=== PATIENT | male | born 1995 | race Caucasian/White ===

== ENCOUNTER 2018-06-04 09:38 | Observation (INO) ==
[2018-06-04] MEDS ORDERED: IOPAMIDOL 100 ML BOTTLE IV ONE (09:39)
[2018-06-04] MEDS ORDERED: 0.9 % SODIUM CHLORIDE 1,000 ML IV ONE ×2 (09:47→11:19)
--- NOTE | 2018-06-04 10:06 | Emergency Department Note ---
Fever HPI - General Chief Complaint: Fever Stated Complaint: Fever Time Seen by Provider: 06/04/18 09:54 Source: patient Mode of arrival: ambulatory Limitations: no limitations - History of Present Illness HPI Narrative: Patient has been having fever and cough for the past week. Seen at the urgent care and they referred him over to the ED as the patient sats are running at 88 % to 90%. States there is been some yellowish greenish sputum production. States he is not wheezing he has a history of childhood asthma but has not used albuterol for many years according to his mother. Mother states that his brother was also diagnosed with pneumonia 1 week ago. He has had some sore throat 1 week ago but currently is not. He had one episode of vomiting today his appetite is been poor. His temperature is 98.9 at this timeTemperature 98.9 the pulse is 128 respirations at 20 blood pressure 123/84 pulse ox is reading at 88% on room air - Related Data Home Medications Medication Instructions Recorded Confirmed No Known Home Meds [No Known Home 06/04/18 Meds] Allergies Allergy/AdvReac Type Severity Reaction Status Date / Time cats Allergy Unknown sneezing, Uncoded 06/04/18 09:16 eyes swell dogs Allergy Unknown sneezing, Uncoded 06/04/18 09:16 eyes swell dust Allergy Unknown Sneezing Uncoded 06/04/18 09:16 horses Allergy Unknown Sneezing, Uncoded 06/04/18 09:16 eyes swell Review of Systems All systems ED: reviewed and negative except as stated. Constitutional: Reports: fever Eyes: Denies: eye pain ENT ED: Denies: ear pain Cardiovascular: Denies: chest pain Respiratory: Reports: cough. Denies: shortness of breath, wheezes Gastrointestinal: Denies: abdominal pain, nausea Genitourinary: Denies: dysuria, frequency, urgency Musculoskeletal: Denies: back pain, joint swelling Integumentary: Denies: rash, lesions Neurological: Denies: headache, weakness Psychiatric: Denies: anxiety, depression Endocrine: Denies: fatigue Hematological/Lymphatic: Denies: easy bleeding Allergic/Immunologic: Denies: facial swelling Fever PMH - Past Medical History Medical history: Reports: other (Eczema anxiety) Surgical history ED: Reports: non-contributory Family history: Reports: no significant family history - Social History smoking status: Never smoker Alcohol use: Reports: None Drug use: Reports: none Physical Exam Limitations: no limitations General appearance: alert Head: atraumatic, normocephalic Eye: Present: normal appearance, PERRL ENT: normal exam, normal oropharynx, mucous membranes moist Neck: Present: normal inspection, full ROM. Absent: trachea midline Chest: Present: normal inspection, symmetric chest wall rise. Absent: tenderness Respiratory: Present: normal lung sounds bilaterally. Absent: respiratory distress, wheezes, stridor Cardiovascular: Present: regular rate Abdominal: Present: soft, normal bowel sounds. Absent: distention, tenderness, guarding, rebound, rigidity Extremities: Present: normal inspection, full ROM. Absent: tenderness Back: Present: normal inspection, full ROM. Absent: tenderness Neurological: Present: alert, oriented X3, CN II-XII intact Psychiatric: Present: normal affect, normal mood. Absent: depressed, agitated Skin: Present: warm, dry Course Vital Signs Temperature 98.9 F 06/04/18 09:39 Pulse Rate 128 H 06/04/18 09:39 Respiratory Rate 20 06/04/18 09:39 Blood Pressure 123/84 06/04/18 09:39 Pulse Oximetry (%) 88 L 06/04/18 09:39 Temperature 100.4 F H 06/04/18 12:32 Pulse Rate 113 H 06/04/18 12:32 Respiratory Rate 23 H 06/04/18 11:30 Blood Pressure 118/74 06/04/18 12:32 Pulse Oximetry (%) 91 06/04/18 12:32 Fever - MDM Narrative Medical decision making narrative: Contusion noted WBC is 11,766 and 21 bands, 60 segs her d-dimer was elevated at 4.44 sodium is 133 potassium 3.9. CTA was performed which showed no evidence of PE but did reveal bilateral infiltrates. Patient requiring O2 to keep his sats above 93rd Dr Millan contacted and he will evaluate the patient for admission. - Lab Data Result diagrams: 06/04/18 09:57 06/04/18 09:57 Lab Results 06/04/18 06/04/18 06/04/18 Range/Units 09:57 09:57 09:57 WBC 11.7 H (4.5-11.0) K/mcL RBC 5.23 (4.50-5.90) M/mcL Hgb 15.1 (13.5-16.5) g/dL Hct 44.9 (41.0-55.0) % MCV 85.8 (80.0-100.0) fL MCH 29.0 (26.0-34.0) pg MCHC 33.8 (31.0-36.0) g/dL RDW 12.4 (11.5-14.5) % Plt Count 324 (140-440) K/mcL MPV 8.9 (7.4-10.4) fL Total Counted 100 Seg Neutrophils % 60 (38-78) % Band Neutrophils % 21 H (0-10) % Lymphocytes % 11 L (15-49) % Monocytes % (Manual) 4 (1-12) % Eosinophils % (Manual) 3 (0-7) % Reactive Lymphocytes 1 (0-2) % Platelet Estimate Normal (NORMAL) RBC Morphology Normal (NORMAL) D-Dimer (0.00-0.40) ug/ml VBG Lactic Acid 1.3 (0.5-2.2) mmol/L Sodium 133 (133-145) mmol/L Potassium 3.9 (3.3-5.1) mmol/L Chloride 91 L (96-108) mmol/L Carbon Dioxide 21 L (22-30) mmol/L Anion Gap 21.0 H (8-16) BUN 12 (6-20) mg/dl Creatinine 0.8 (0.7-1.2) mg/dl GFR Calculation 126 Glucose 104 (70-105) mg/dL Calcium 9.2 (8.6-10.4) mg/dl Total Bilirubin 0.5 (0.0-1.0) mg/dL AST 23 (0-37) U/l ALT 16 (0-40) U/l Alkaline Phosphatase 55 (39-117) U/L Total Protein 8.3 (5.9-8.4) gm/dL Albumin 4.3 (3.2-5.2) gm/dL Globulin 4.0 H (2.2-3.7) gm/dL Albumin/Globulin Ratio 1.1 (1.0-2.3) Urine Color Urine Appearance Urine pH (5.0-9.0) Ur Specific [place] (1.000-1.035) Urine Protein (NEG) mg/dL Urine Glucose (UA) (NEG) mg/dL Urine Ketones (NEG) mg/dL Urine Occult Blood (<0.03) mg/dL Urine Nitrate (NEG) Urine Bilirubin (NEG) mg/dL Urine Urobilinogen (NEG) mg/dL Ur Leukocyte Esterase (NEG) /uL Urine RBC (0-1) /hpf Urine WBC (0-4) /hpf Ur Squamous Epith Cells (0-4) /hpf Urine Bacteria (0) /hpf Urine Mucus (0) /hpf Ur Culture Indicated? 06/04/18 06/04/18 Range/Units 09:57 12:19 WBC (4.5-11.0) K/mcL RBC (4.50-5.90) M/mcL Hgb (13.5-16.5) g/dL Hct (41.0-55.0) % MCV (80.0-100.0) fL MCH (26.0-34.0) pg MCHC (31.0-36.0) g/dL RDW (11.5-14.5) % Plt Count (140-440) K/mcL MPV (7.4-10.4) fL Total Counted Seg Neutrophils % (38-78) % Band Neutrophils % (0-10) % Lymphocytes % (15-49) % Monocytes % (Manual) (1-12) % Eosinophils % (Manual) (0-7) % Reactive Lymphocytes (0-2) % Platelet Estimate (NORMAL) RBC Morphology (NORMAL) D-Dimer 4.44 H (0.00-0.40) ug/ml VBG Lactic Acid (0.5-2.2) mmol/L Sodium (133-145) mmol/L Potassium (3.3-5.1) mmol/L Chloride (96-108) mmol/L Carbon Dioxide (22-30) mmol/L Anion Gap (8-16) BUN (6-20) mg/dl Creatinine (0.7-1.2) mg/dl GFR Calculation Glucose (70-105) mg/dL Calcium (8.6-10.4) mg/dl Total Bilirubin (0.0-1.0) mg/dL AST (0-37) U/l ALT (0-40) U/l Alkaline Phosphatase (39-117) U/L Total Protein (5.9-8.4) gm/dL Albumin (3.2-5.2) gm/dL Globulin (2.2-3.7) gm/dL Albumin/Globulin Ratio (1.0-2.3) Urine Color Yellow Urine Appearance Clear Urine pH 6.0 (5.0-9.0) Ur Specific [place] 1.009 (1.000-1.035) Urine Protein Neg (NEG) mg/dL Urine Glucose (UA) Negative (NEG) mg/dL Urine Ketones 20 A (NEG) mg/dL Urine Occult Blood Neg (<0.03) mg/dL Urine Nitrate Neg (NEG) Urine Bilirubin Neg (NEG) mg/dL Urine Urobilinogen Neg (NEG) mg/dL Ur Leukocyte Esterase Neg (NEG) /uL Urine RBC 0 (0-1) /hpf Urine WBC 0 (0-4) /hpf Ur Squamous Epith Cells < 1 (0-4) /hpf Urine Bacteria Few A (0) /hpf Urine Mucus Many A (0) /hpf Ur Culture Indicated? Yes Disposition Pt seen by ADMINISTRATIVE MANAGER/PA only: No Clinical Impression: Bilateral pneumonia Qualifiers: Pneumonia type: due to unspecified organism Disposition: Xfer As Inpt ([facility]) Condition: Fair Referrals: Umesh Qureshi PA-C [Primary Care Provider] -
[2018-06-04] MEDS ORDERED: cefTRIAXone 1 GM VIAL IV ONE (10:34)
[2018-06-04] MEDS ORDERED: AZITHROMYCIN 500 MG in DEXTROSE 5% IN WATER 250 ML IV ONE (10:35)
[2018-06-04 10:52] LABS: Mean Cell Volume 85.8 fL (80.0-100.0); Mean Corpuscular HGB Conc 33.8 g/dL (31.0-36.0); Platelet Count 324 K/mcL (140-440); RBC 5.23 M/mcL (4.50-5.90); Red Cell Distribution Width 12.4 % (11.5-14.5)
--- NOTE | 2018-06-04 11:00 | XRay Report ---
HISTORY: Reason for Exam:shortness of breath FINDINGS: The lungs are clear. The heart, mediastinum, alonso and pleura are normal. IMPRESSION: Normal chest. Interpreted and Authenticated by: Tono Alba 06/04/18
[2018-06-04] MEDS ORDERED: IPRATROPIUM/ALBUTEROL 3 ML AMPUL.NEB NEB ONE (11:21)
[2018-06-04 11:32] LABS: ALT/SGPT 16 U/l (0-40); Albumin 4.3 gm/dL (3.2-5.2); Albumin/Globulin Ratio 1.1 (1.0-2.3); Alkaline Phosphatase 55 U/L (39-117); Blood Urea Nitrogen 12 mg/dl (6-20)
[2018-06-04 11:43] LABS: Band Neutrophils % 21 % (0-10); Eosinophils % (Manual) 3 % (0-7); Lymphocytes % 11 % (15-49); Monocytes % (Manual) 4 % (1-12); Platelet Estimate NORMAL (NORMAL); RBC Morphology NORMAL (NORMAL); Segmented Neutrophils % 60 % (38-78)
--- NOTE | 2018-06-04 12:39 | Cat Scan Report ---
CLINICAL INFORMATION: Reason for Exam:low stats, fever, shortness of breath, elevated d-dimer COMPARISON: None TECHNIQUE: Axial images obtained through the chest. intravenous contrast administration was administered, and scanning was performed during pulmonary arterial phase. Sagittally and coronally reformatted images were obtained. MIP reformatted images. Radiation exposure was limited using dose reduction technology. FINDINGS: There are mild generalized patchy alveolar infiltrates in both lungs. Some of them are peribronchial in distribution. The greatest involvement is in the central portion of the lungs. No lobar consolidation is present. There is no evidence of a mass or pleural effusion. There are small reactive lymph nodes in mediastinum and both alonso. The pulmonary arteries are normal without evidence of emboli. The aorta is normal in caliber and there is no aneurysm or dissection. The heart is normal in size and contour. IMPRESSION: Generalized patchy alveolar infiltrates in both lungs. This most likely due to pneumonia. Collagen vascular disease or hypersensitivity reaction are also in the differential. Dr. Sprague was called with the results Interpreted and Authenticated by: Tono Alba 06/04/18
[2018-06-04 12:54] LABS: Appearance,Urine CLEAR; Bacteria,Urine FEW /hpf (0); Bilirubin,Urine NEG (NEG); Color,Urine YELLOW; Glucose,Urine (UA) NEGATIVE (NEG); Leukocyte Esterase,Urine NEG /uL (NEG); Mucus,Urine MANY /hpf (0); Protein,Urine NEG (NEG); Specific Gravity,Urine 1.009 (1.000-1.035); Urine Blood NEG mg/dL (<0.03); Urine RBC 0 /hpf (0-1); Urine Squamous Epithelial Cell < 1 /hpf (0-4); Urine WBC 0 /hpf (0-4); Urobilinogen,Urine NEG (NEG)
[2018-06-04] MEDS ORDERED: methylPREDNISolone SOD SUCC 125 MG/2 ML VIAL IV ONE (15:01)
[2018-06-04] MEDS ORDERED: methylPREDNISolone SOD SUCC 125 MG/2 ML VIAL IV STA (15:04)
[2018-06-04] MEDS ORDERED: IBUPROFEN 600 MG TABLET PO PRN ×2 (15:07→16:04)
[2018-06-04] MEDS ORDERED: ACETAMINOPHEN 325 MG TABLET PO PRN ×2 (15:07→16:04)
--- NOTE | 2018-06-04 15:12 | Internal Med History&Physical ---
Medical - H&P: HPI Patient information: Note initiated : 06/04/18 at 3:03 pm Service Date, if different from initiated Date: [] Patient: Baljinder Alonzo 23 y/o M admitted on for Fever. Chief Complaint: [] Chief complaint: low saturation, 80-90% room air History of present illness: Mr. Alonzo is a 23 year old M, nonsmoker, with significant history of childhood asthma, referred to the ER by urgent care for low room air saturation of 88-90% . He had exposure to his brother, who had been diagnosed with pneumonia and treated with Zithromax a week ago. He had been having cough, fever, night sweats the last week. Stat ABG in the ER show marginal hypoxemia, chest x-ray unremarkable, CTA with patchy alveolar infiltrates bilaterally, most likely due to pneumonia per radiologist report. He was given 2 L IV normal saline, IV Rocephin and IV azithromycin, DuoNeb aerosol treatments, currently on 2 L O2 nasal cannula. Medical - H&P: Meds Home Medications Medication Instructions Recorded Confirmed Type No Known Home Meds [No Known Home 06/04/18 06/04/18 History Meds] Allergies Allergy/AdvReac Type Severity Reaction Status Date / Time cats Allergy Unknown sneezing, Uncoded 06/04/18 09:16 eyes swell dogs Allergy Unknown sneezing, Uncoded 06/04/18 09:16 eyes swell dust Allergy Unknown Sneezing Uncoded 06/04/18 09:16 horses Allergy Unknown Sneezing, Uncoded 06/04/18 09:16 eyes swell Medical - H&P: Exam - Constitutional Vitals: Temp Pulse Resp BP Pulse Ox 100.4 F H 94 H 31 H 118/75 96 06/04/18 12:32 06/04/18 14:30 06/04/18 14:30 06/04/18 14:30 06/04/18 14:30 Exam: Resting, somewhat flat - Head Head exam: Present: atraumatic, normocephalic - Eye Eye exam: Present: EOMI Pupils: Present: normal accommodation, PERRL - ENT ENT exam: Present: mucous membranes dry - Neck Neck exam: Present: full ROM. Absent: lymphadenopathy, meningismus - Respiratory Respiratory exam: Present: wheezes. Absent: accessory muscle use - Cardiovascular Cardiovascular exam: Present: +S1, +S2, tachycardia - GI/Abdominal GI/Abdominal exam: Present: normal bowel sounds, soft. Absent: guarding, rebound, tenderness - Extremities Exam Extremities exam: Present: full ROM Additional comments: No clubbing, cyanosis, nor edema - Neurological Exam Neurological exam: Present: alert, CN II-XII intact, oriented X3 - Skin Skin exam: Present: dry, intact, warm Medical - H&P: Reslt - Labs CBC & Chem 7: 06/04/18 09:57 06/04/18 09:57 Labs: Short CBC 06/04/18 Range/Units 09:57 WBC 11.7 H (4.5-11.0) K/mcL Hgb 15.1 (13.5-16.5) g/dL Hct 44.9 (41.0-55.0) % Plt Count 324 (140-440) K/mcL BMP 06/04/18 09:57 Sodium 133 Potassium 3.9 Chloride 91 L Carbon Dioxide 21 L BUN 12 Creatinine 0.8 Glucose 104 Calcium 9.2 Liver Function 06/04/18 Range/Units 09:57 Total Bilirubin 0.5 (0.0-1.0) mg/dL AST 23 (0-37) U/l ALT 16 (0-40) U/l Alkaline Phosphatase 55 (39-117) U/L Albumin 4.3 (3.2-5.2) gm/dL Urine 06/04/18 Range/Units 12:19 Urine Color Yellow Urine Appearance Clear Urine pH 6.0 (5.0-9.0) Ur Specific [place] 1.009 (1.000-1.035) Urine Protein Neg (NEG) mg/dL Urine Glucose (UA) Negative (NEG) mg/dL Medical - H&P: A/P (1) Asthma exacerbation Current visit: Yes Status: Acute (2) Hypoxemia Current visit: Yes Status: Acute (3) Fever Current visit: No Status: Acute
[2018-06-04] MEDS ORDERED: cefTRIAXone 1 GM in DEXTROSE 5% IN WATER 50 ML IV SCH (15:15)
[2018-06-04] MEDS: 0.9 % SODIUM CHLORIDE 10 ML SYRINGE IV SCH ×2 (17:55→21:13)
[2018-06-04] MEDS: 0.9 % SODIUM CHLORIDE 1,000 ML IV SCH (17:57)
[2018-06-04] MEDS ORDERED: IPRATROPIUM/ALBUTEROL 3 ML AMPUL.NEB NEB SCH (19:00)
[2018-06-04] MEDS: IPRATROPIUM/ALBUTEROL 3 ML AMPUL.NEB NEB SCH ×2 (19:53→23:18)
[2018-06-04] MEDS: BUDESONIDE 0.5 MG/2 ML AMPUL.NEB NEB SCH (19:53)
[2018-06-04] MEDS ORDERED: BUDESONIDE 0.5 MG/2 ML AMPUL.NEB NEB SCH (21:00)
[2018-06-04] MEDS ORDERED: guaiFENesin 600 MG TAB.SR.12H PO SCH (21:00)
[2018-06-04] MEDS: methylPREDNISolone SOD SUCC 40 MG/ML VIAL IV SCH (21:10)
[2018-06-04] MEDS: guaiFENesin 600 MG TAB.SR.12H PO SCH (21:10)
[2018-06-04] MEDS ORDERED: methylPREDNISolone SOD SUCC 40 MG/ML VIAL IV SCH (21:30)
[2018-06-04] MEDS ORDERED: 0.9 % SODIUM CHLORIDE 10 ML SYRINGE IV SCH (22:00)
[2018-06-05] MEDS: methylPREDNISolone SOD SUCC 40 MG/ML VIAL IV SCH ×3 (01:12→12:13)
[2018-06-05] MEDS: IPRATROPIUM/ALBUTEROL 3 ML AMPUL.NEB NEB SCH ×5 (04:09→19:45)
[2018-06-05] MEDS: 0.9 % SODIUM CHLORIDE 1,000 ML IV SCH (04:09)
[2018-06-05 06:20] LABS: Basophils # (Auto) 0 K/mcL (0.0-0.3); Basophils % (Auto) 0.1 % (0.0-2.0); Eosinophils # (Auto) 0 K/mcL (0.0-0.7); Eosinophils % (Auto) 0 % (0.0-7.0); Lymphocytes # (Auto) 0.9 K/mcL (1.5-4.8); Lymphocytes % (Auto) 14.6 % (15.5-49.0); Mean Cell Volume 87.8 fL (80.0-100.0); Mean Corpuscular HGB Conc 33.6 g/dL (31.0-36.0); Mean Corpuscular Hemoglobin 29.5 pg (26.0-34.0); Monocytes # (Auto) 0.2 K/mcL (0.1-0.9); Monocytes % (Auto) 3.3 % (1.0-12.0); Platelet Count 332 K/mcL (140-440); RBC 4.67 M/mcL (4.50-5.90); Red Cell Distribution Width 12.7 % (11.5-14.5)
[2018-06-05 06:44] LABS: ALT/SGPT 14 U/l (0-40); Albumin 3.8 gm/dL (3.2-5.2); Albumin/Globulin Ratio 1.2 (1.0-2.3); Alkaline Phosphatase 43 U/L (39-117); Blood Urea Nitrogen 11 mg/dl (6-20)
[2018-06-05] MEDS: 0.9 % SODIUM CHLORIDE 10 ML SYRINGE IV SCH ×2 (07:04→18:02)
[2018-06-05] MEDS: BUDESONIDE 0.5 MG/2 ML AMPUL.NEB NEB SCH ×2 (07:34→19:46)
[2018-06-05] MEDS ORDERED: cefTRIAXone 1 GM VIAL IV SCH (09:00)
[2018-06-05] MEDS ORDERED: AZITHROMYCIN 250 MG TABLET PO SCH ×2 (09:00)
[2018-06-05] MEDS: guaiFENesin 600 MG TAB.SR.12H PO SCH ×2 (09:19→20:15)
[2018-06-05] MEDS ORDERED: cefTRIAXone 1 GM in DEXTROSE 5% IN WATER 50 ML IV SCH (15:15)
--- NOTE | 2018-06-05 19:56 | Discharge Summary ---
Medical - DS: Prov Patient information: Note initiated : 06/05/18 at 7:46 pm Service Date, if different from initiated Date: [] Patient: Baljinder Alonzo 23 y/o M admitted on 06/04/18 for Fever/Asthma Exacerbation. Chief Complaint: [] Date of admission: 06/04/18 15:52 Discharge date: 06/05/18 (home with flovent, combivent, oral Abx) Primary care physician: Umesh Qureshi Admitting clinician: Renee Mc Consults: 06/04/18 12:48 Consult to Physician [CONS] Stat Comment: Consulting Provider: Renee Mc Reason For Exam: Physician to Consult Attending physician on discharge: Renee Mc Medical - DS: Meds - Discharge Medications Prescriptions: Azithromycin [Zithromax] 500 mg PO DAILY #4 tab Cefuroxime Axetil [Cefuroxime] 500 mg PO BID #14 tab Fluticasone Hfa 220Mcg [Flovent Hfa 220Mcg] 2 puff INH BID #1 inhaler guaiFENesin [Mucinex] 600 mg PO BID #20 tab.sr.12h Ipratropium/Albuterol Sulfate [Combivent] 1 - 2 puff INH QIDP PRN #1 inhaler PRN Reason: short of breath Active and Home Medications: Home Medications No Known Home Meds [No Known Home Meds] 06/04/18 [History Confirmed 06/04/18 Last Taken Unknown] Medical - DS: Hosp Hospital course: Mr. Alonzo is a 23 year old M, nonsmoker, with significant history of childhood asthma, referred to the ER by urgent care for low room air saturation of 88-90% . He had exposure to his brother, who had been diagnosed with pneumonia and treated with Zithromax a week ago. He had been having cough, fever, night sweats the last week. Stat ABG in the ER show marginal hypoxemia, chest x-ray unremarkable, CTA with patchy alveolar infiltrates bilaterally, most likely due to pneumonia per radiologist report. He responded well to aerosol, IV steroids , antibiotics with Rocephin and Zithromax. His pulse ox is now 91 percent pre- and 94% post ambulatory on room air. Although one set of blood culture are reported to be positive with staph epidermidis, gram-positive cocci, not staph aureus, it is likely skin adlia contamination. Clinically he is significantly improve, and will benefit from inhaled steroids for his ignored/undiagnosed asthma/COPD from years of allergen exposure. He is to be discharged home with oral Zithromax (high dose for 5 days), oral Ceftin (7 days), Flovent, when necessary Combivent. Mucinex to ease up coughing. He is to follow with his PCP in 1-2 weeks. Discharge diagnosis: asthma exacerbation Secondary discharge diagnosis: Hypoxemia, URI, residual patchy alveolar infiltrates Severe seasonal/environmental allergies, untreated, his x-ray now show stigmata of asthma/early COPD. Dehydration, resolve with IV fluid. - Time Spent with Patient Total time spent providing and/or coordinating discharge services: Greater than 30 minutes Medical - DS: Exam - Constitutional Vitals: Vital Signs Temp Pulse Pulse Resp BP Pulse Ox 06/05/18 15:05 92 H 16 06/05/18 15:00 94 06/05/18 11:36 98.0 F 90 18 120/79 91 06/05/18 11:00 92 06/05/18 10:35 115 H 18 93 06/05/18 08:58 100 H 18 06/05/18 07:46 97.9 F 97 H 18 121/77 91 06/05/18 07:35 99 H 18 06/05/18 07:00 97 06/05/18 04:00 98.0 F 101 H 20 122/80 93 06/05/18 03:00 92 06/04/18 23:58 97.7 F 99 H 20 114/72 91 06/04/18 23:20 101 H 18 06/04/18 23:00 91 06/04/18 20:49 85 18 06/04/18 20:00 98.0 F 99 H 22 108/70 93 Intake and Output 06/05/18 06/05/18 06/05/18 05:59 13:59 21:59 Intake Total 1200 / 1200 420 / 420 1000 / 1000 Output Total 500 / 500 650 / 650 Balance 700 / 700 -230 / -230 1000 / 1000 Intake: IV 1000 / 1000 1000 / 1000 Sodium Chloride 0.9% 1,000 ml @ 1000 / 1000 1000 / 1000 100 mls/hr IV .Q10H EUGENIA Rx#: [id number] Oral 200 / 200 420 / 420 Output: Void Amount 500 / 500 650 / 650 Other: Meal Breakfast Dinner Percent of Meal Consumed 100% Refused Stool Consistency Niharika General appearance: no acute distress - Head Head exam: Present: atraumatic, normocephalic - Eye Eye exam: Present: EOMI Pupils: Present: normal accommodation, PERRL - ENT ENT exam: Present: mucous membranes moist - Neck Neck exam: Present: full ROM. Absent: lymphadenopathy, meningismus - Respiratory Respiratory exam: Absent: accessory muscle use, respiratory distress Additional comments: Much improved with increase air movement, significant decreasing wheezes, pulse ox saturation in the 90s now on room air. - Cardiovascular Cardiovascular exam: Present: +S1, +S2. Absent: gallop, JVD, rubs - GI/Abdominal GI/Abdominal exam: Present: normal bowel sounds, soft. Absent: distended, guarding, rebound - Extremities Exam Extremities exam: Present: full ROM, normal capillary refill, neurovascular intact. Absent: pedal edema Additional comments: No clubbing, cyanosis, nor edema - Neurological Exam Neurological exam: Present: alert, CN II-XII intact, oriented X3 - Skin Skin exam: Present: dry, intact, warm Medical - DS: Data Procedures and tests throughout hospitalization: ABG shows hypoxemia CTA of chest: IMPRESSION: Generalized patchy alveolar infiltrates in both lungs. This most likely due to pneumonia. Collagen vascular disease or hypersensitivity reaction are also in the differential. Dr. Sprague was called with the results Interpreted and Authenticated by: Tono Alba 05/20 Labs on day of discharge: Labs from last 24 hours 06/05/18 06/05/18 04:16 04:16 WBC 6.4 RBC 4.67 Hgb 13.8 Hct 41.0 MCV 87.8 MCH 29.5 MCHC 33.6 RDW 12.7 Plt Count 332 MPV 8.6 Gran % 82.0 H Lymph % (Auto) 14.6 L [place] % (Auto) 3.3 Eos % (Auto) 0 Baso % (Auto) 0.1 Gran # 5.3 Lymph # (Auto) 0.9 L [place] # (Auto) 0.2 Eos # (Auto) 0 Baso # (Auto) 0 Sodium 140 Potassium 4.3 Chloride 103 Carbon Dioxide 22 Anion Gap 15.0 BUN 11 Creatinine 0.6 L GFR Calculation 142 Glucose 119 H Calcium 8.7 Total Bilirubin 0.3 AST 18 ALT 14 Alkaline Phosphatase 43 Total Protein 7.1 Albumin 3.8 Globulin 3.3 Albumin/Globulin Ratio 1.2 Preliminary micro results at discharge 06/04/18 12:19 Urine Culture - Preliminary Urine - Clean Void [place] 06/04/18 09:58 Blood Culture - Preliminary Blood 06/04/18 10:10 Blood Culture - Preliminary Blood Gram positive cocci Medical - DS: A/P - Patient/Caregiver Discharge Instructions Activity: increase activity as tolerated Diet: Regular Diet Additional Instructions: [facility] will be calling you regarding setting up with a primary care provider. - Problem Maintenance (1) Asthma exacerbation Status: Acute (2) Hypoxemia Status: Acute Comment: Due to asthma/COPD exacerbation, resolved with short course of steroid. (3) Upper respiratory infection Status: Acute (4) Dehydration fever Status: Acute (5) Environmental and seasonal allergies Status: Acute - Follow up Plan Follow up with: Umesh Qureshi PA-C [Primary Care Provider] - Disposition: Home, Self-Care Prognosis: Good Rehab Potential: Good Overall status at discharge: patient is progressing back to baseline Medical - DS: Qual - VTE Deep Vein Thrombosis/Pulmonary Embolism Present on Admission: No
== END 2018-06-05 20:42 | disposition home or self-care (01) ==
LOC: ED 09:38 → MEDSUR 09:38
PROVIDERS: ADMIT Emergency Medicine; ATTEND Emergency Medicine